=== PATIENT | female | born 2000 | race Caucasian/White ===

== ENCOUNTER 2018-11-28 11:07 | Inpatient (IN) | payer OTHER ==
[~2018-11-28] VITALS: Ht 170.2 cm; Wt 97.1 kg
[2018-11-28 11:07] VITALS: BP 135/68
[2018-11-28 11:37] LABS: ABSOLUTE NEUTROPHILS 8.1 thou/uL (1.4-8.2); BASOPHILS 0.2 % (0.0-2.0); EOSINOPHILS 0.2 % (0.0-3.0); HEMOGLOBIN 15.1 gm/dL (12.0-15.0); LYMPHOCYTES 11.7 % (24.0-44.0); MCH 29.6 pg (26.0-34.0); MCV 84.5 fL (80.0-100.0); MONOCYTES 4.5 % (1.0-8.0); PLATELET COUNT 192 thou/uL (150-400); POLYS 83.4 % (36.0-66.0); RBC 5.08 mil/uL (4.20-5.00); RDW 12.5 % (10.5-14.5); WBC 9.8 thou/uL (4.0-11.0)
[2018-11-28 11:41] LABS: URINE BILIRUBIN NEGATIVE (Negative); URINE BLOOD 3+ (Negative); URINE CLARITY SL CLOUDY; URINE COLOR YELLOW; URINE GLUCOSE-RANDOM* NEGATIVE (Negative); URINE KETONES NEGATIVE (Negative); URINE LEUKOCYTES-REFLEX TRACE (Negative); URINE NITRITE-REFLEX NEGATIVE (Negative); URINE PROTEIN (DIPSTICK) NEGATIVE (Negative); URINE UROBILINOGEN 0.2 E.U./dl (0.2-1.0)
[2018-11-28 11:45] LABS: CALCIUM 9.9 mg/dL (8.5-10.1); POTASSIUM 3.7 mmol/L (3.5-5.1)
[2018-11-28 11:51] LABS: ALBUMIN 4.5 g/dL (3.4-5.0); TOTAL BILIRUBIN 1.1 mg/dL (<0.1-1.0); TOTAL PROTEIN 8.1 g/dL (6.4-8.2)
[2018-11-28 12:01] LABS: CASTS None Seen /LPF (None Seen); SQUAMOUS >10 Many /LPF (0-3); URINE WBC-REFLEX 6-15 Few /HPF (0-5)
[2018-11-28 12:02] LABS: CRYSTALS None Seen /LPF (None Seen)
[2018-11-28 12:04] LABS: BACTERIA-REFLEX 1-9 Few /HPF (None Seen)
[2018-11-28] MEDS ORDERED: NOHOMEMEDICATIONS (13:59)
[2018-11-28 14:22] VITALS: BP 135/91
[2018-11-28 17:41] VITALS: BP 131/66
--- NOTE | 2018-11-28 19:02 | NUR ---
Received pt from post op, pt is a & o x 4. 3 incision sites with band aid noted on the abdomen, dry and intact,. IV fluids started. Clear diet well tiolerated trnasioned to full liquid and soft diet. endorsed to night nurse to advance as tolerated (diet). Pt is able to ambulate from bed to toilet on her own with standby assists. Pt is voiding on her own with no issues verbalized. No pain as of this point was noted.
[2018-11-28 20:39] VITALS: BP 126/63
--- NOTE | 2018-11-29 03:08 | NUR ---
PT RESTED THROUGHOUT THE NIGHT PT OFFERED PAIN MEDICINE BUT PT DECLINED NO COMPLAINTS OF NAUSEA NO ISSUES OVERNIGHT.
[2018-11-29 04:55] VITALS: BP 126/59
[2018-11-29 08:34] VITALS: BP 116/73
--- NOTE | 2018-11-29 11:02 | O ---
[facility] [place] [place] [address] OPERATIVE REPORT Name: AVA CARLISLE Room #: 458-P [facility] IN M.R.#: [id number] Admission: 11/28/18 Attend Phys: Moy Vinson MD Discharge: Date of : 89 Report #: [id number] THIS REPORT FOR: //name// CC: FAM unknown Moy Vinson DATE OF SERVICE: 11/28/2018 PREOPERATIVE DIAGNOSES: 1. Acute pelvic pain. 2. Pelvic mass. 3. Nausea. POSTOPERATIVE DIAGNOSES: 1. Acute pelvic pain. 2. Nausea. 3. Left adnexal torsion. 4. Hemorrhagic left ovarian cyst. 5. Left paratubal cyst. 6. Simple cyst of the left ovary. SURGEON: Nicolás Jerez MD. NETWORK SUPPORT: None. ANESTHESIA: General. ESTIMATED BLOOD LOSS: 15 mL. PROCEDURE: Laparoscopic detorsion of the left adnexa; left ovarian cystectomy; drainage of left paratubal cyst. SPECIMEN: Left paratubal cyst fluid. COMPLICATIONS: None. FINDINGS: Left adnexal torsion for 2-1/2 rotations. There was a large blue black left ovarian hemorrhagic cyst consistent with a corpus luteal cyst. Left paratubal cyst with overlying tubal fimbria. A small simple cyst of the left ovary. Normal uterus and right ovary and tube. Intact hymenal ring consistent with virginal status. DESCRIPTION OF PROCEDURE: The patient was admitted through the Emergency Room and diagnoses of acute pelvic pain, pelvic mass and possible left adnexal torsion were made. The patient was taken emergently to the operating room within 1-1/2 hours of being seen by Dr. Jerez after consent was signed for [facility] [address] [place] [address] OPERATIVE REPORT Name: AVA CARLISLE Room #: 458-P ADM IN M.R.#: [id number] Admission: 11/28/18 Attend Phys: Moy Vinson MD Discharge: Date of : [birth year] Report #: [id number] surgery including risks of hemorrhage, infection, injury to internal structures. The patient was placed under general anesthesia, prepped and draped in a sterile fashion in dorsal lithotomy position. Pelvic exam revealed an intact hymenal ring that could admit one finger thickness. The cervix was able to be visualized with two thin Gulliver retractors. Left pelvic mass could be palpated. The anterior lip of cervix was grasped using a single tooth tenaculum and the uterus sounded to a depth of 6 cm. A Hulka sound tenaculum was then placed inside the uterus for manipulation followed by placement of a Aquino catheter inside the bladder. Attention was then turned to the abdomen where an infraumbilical skin incision was made using a scalpel after first injecting with 0.25% Marcaine solution subcutaneously and subcuticularly. Through this incision was passed a laparoscopic trocar and trocar sleeve with Optiview technique laparoscopic direct vision aiming towards the uterus. The trocar was then removed, laparoscope inserted and successful placement of the cannula was confirmed. CO2 gas insufflation was carried out. A suprapubic midline incision was made using a scalpel after first injecting with 0.25% Marcaine. Under direct laparoscopic vision, a 5 mm laparoscopic port was placed at this position. A third laparoscopic 5 mm port was placed in the left lower quadrant after identifying the inferior epigastric blood vessels laparoscopically and staying lateral to them, but also 2 fingerbreadths above and medial to the anterior iliac spines. Intraoperative laparoscopic findings were as dictated as above. The left adnexa was carefully detorsed from its 2-1/2 rotations and gradually the color began to return closer to normal for the fallopian tube. The good size left fallopian tubal cyst was incised and drained. It could not, however, be removed due to the overlying tubal fimbria. This fluid was sent for pathology. There was a small left ovarian simple cyst, which was excised and the wall sent for pathology. The left hemorrhagic ovarian cyst was then opened and evacuated and cleaned using normal saline irrigating solution. The pelvis was irrigated and suctioned. The auxiliary trocars were removed under direct laparoscopic vision and found to be hemostatic. The CO2 gas was then expressed through the umbilical trocar sleeve, which was then closed using simple sutures of 3-0 Vicryl as were the other two laparoscopic port incision sites. The Aquino catheter was removed. It should be noted that the hymenal ring was broken during the visualization of the cervix and insertion of the uterine Hulka sound tenaculum. There was no active bleeding at this time. The patient was taken from the operating room to the recovery room with IV infusing well. Urine in the Aquino was clear. She was to be monitored for at least 2 hours and discharged home once she was fully awake and alert and her pain controlled. She was to follow up as an outpatient in the office of Dr. Jerez in 5-6 days. <ELECTRONICALLY SIGNED> By: Didier Jerez MD 11/29/18 1102 1727 1808 Didier Jerez MD /nt
[2018-11-29] MEDS ORDERED: HYDROCODONE-AP1 EAC6 PO (11:33)
[2018-11-29 11:49] VITALS: BP 116/73
--- NOTE | 2018-12-03 09:11 | PATH ---
[facility] [place] [address] PATHOLOGY RPT PROCEDURE Name: AVA MARINELLI Room #: 458-P [facility] IN M.R.#: [id number] Admission: 11/28/18 Date of : [birth year] Discharge: 11/29/18 Report #: [id number] Path Case #: [id number] [facility] Accession Number: [id number] . 01 Material submitted: . LEFT OVARIAN CYST WALL . 01 Clinical history: . Possible ovarian torsion . 02 Diagnosis: Ovary "left ovarian cyst wall", excision: - Cyst lined by serous epithelium most likely consistent with simple serous cyst. - There is no evidence of atypia or malignancy. (SHA:sergey; 12/02/2018) QMS/12/02/2018 . 02 Electronically signed: . Oscar Arredondo MD, Pathologist NPI- [id number] . 01 Gross description: . The specimen is received in formalin, labeled "Ava Marinelli, left ovarian cyst wall". Received is a segment of translucent fibromembranous tissue measuring 2.3 x 0.5 x 0.3 cm in greatest dimensions. The specimen is submitted entirely in cassette A1. (CAA; 11/29/2018) QAC/QAC . 02 Pathologist provided ICD-10: N83.202 . 02 CPT . 108784 Specimen Comment: A courtesy copy of this report has been sent to Specimen Comment: [phone], . Specimen Comment: Report sent to / DR HORVATH Specimen Comment: A duplicate report has been generated due to demographic updates. Performed at: 01 [place] [id number] [address] [id number] MD Santiago Granado MD Phone: [phone] Performed at: [address] [id number] [address] [address] PATHOLOGY RPT PROCEDURE Name: AVA MARINELLI Room #: 458-P [facility] IN M.R.#: [id number] Admission: 11/28/18 Date of : [birth year] Discharge: 11/29/18 Report #: [id number] Path Case #: [id number] MD Shirley Robledo MD Phone: [phone]
--- NOTE | 2018-12-03 09:11 | PATH ---
[facility] [place] [address] PATHOLOGY RPT PROCEDURE Name: AVA CARLISLE Room #: 458-[facility] IN M.R.#: [id number] Admission: 11/28/18 Date of : [birth year] Discharge: 11/29/18 Report #: [id number] Path Case #: [id number] Note [facility] Accession Number: [id number] TESTS RESULT FLAG UNITS REF RANGE LAB Clinician Provided Cytology Information No. of containers..01 Other (Miscellaneous) Source: LFT PERITUBULAR CYST DIAGNOSIS: LFT PERITUBULAR CYST NEGATIVE FOR MALIGNANT CELLS. SCANT CELLULARITY. THIS INTERPRETATION INCLUDES EVALUATION OF A CELL BLOCK. Signed out by: 02 Oscar Arredondo MD, Pathologist NPI- [id number] Performed by: 01 [facility] ([facility]) Gross description: 01 20ML, YELLOW, CLEAR /LCS FLAG LEGEND: L-Low Normal,H-High Normal,LL-Alert Low,HH-Alert High <-Panic Low,>-Panic High,A-Abnormal,AA-Critical Abnormal Performed at: [address] [place] [address] Santiago Granado MD, [address] [id number] Shirley Robledo MD, Specimen Comment: A courtesy copy of this report has been sent to Specimen Comment: [phone]. Specimen Comment: Report sent to Specimen Comment: A duplicate report has been generated due to demographic updates. Performed at: [address], [place], [place] [id number] MD Satniago Granado MD Phone: [phone]
== END 2018-11-29 12:44 | disposition home or self-care (01) | DRG 742 ==
LOC: ER 11:07 → 4W 14:00 → EROBS 14:00 → 4W 17:09
PROVIDERS: Emergency Medicine; ADMIT Internal Medicine
DX: N83.512 Torsion of left ovary and ovarian pedicle (principal); E43 Unspecified severe protein-calorie malnutrition; N83.522 Torsion of left fallopian tube; N83.8 Other noninflammatory disorders of ovary, fallopian tube and broad ligament; N83.202 Unspecified ovarian cyst, left side; R10.2 Pelvic and perineal pain; Z79.899 Other long term (current) drug therapy
CPT/HCPCS: 10047; 50010; 50101; 50249; 50386; 50400; 50455; 50555; 51489; 53307; 56462; 56528; 56970; 62110; 62900; 70005